=== PATIENT | female | born 1970 | race Caucasian/White ===

== ENCOUNTER 2019-01-02 00:35 | Outpatient (CLI) | payer OTHER, SELFPAY ==
--- NOTE | 2019-01-02 10:21 | DI.MAMMO_ITS ---
SYMPTOM/DIAGNOSIS: SCREENING, Z12.31 MAMMOGRAMS; Mammograms were interpreted according to the usual protocol including computer analysis with CAD system, tomosynthesis and C view imaging. Comparison is made with prior examinations. Breast density, Category C. No suspicious masses or microcalcifications are seen. There is no definite evidence of malignancy. IMPRESSION: Negative mammogram. Routine screening is recommended. Category 1. MQSA ASSESSMENT OF FINDINGS: Negative. Category 1. Patient will receive a letter notifying them of these results. Bi-RADS category C. The breasts are heterogeneously dense, which may obscure small masses.
== END 2019-01-02 00:55 ==
PROVIDERS: PCP Family Medicine; Visit Provider Family Medicine
DX: Z12.31 Encounter for screening mammogram for malignant neoplasm of breast (principal)
CPT/HCPCS: 77063; 77067

== ENCOUNTER 2021-07-02 18:17 | Outpatient (REF) | payer OTHER, SELFPAY ==
--- NOTE | 2021-07-02 16:30 | PAPFT_PTH ---
PATIENT: Asya Pandya LOC: [facility] #:[id number] AGE/SX: 50/F ROOM: RE07/02/[address]: Nataliya Scott MD : 1970 BED: DIS: 07/02/2021 SPEC #: [id number] RECD: 07/02/21 18:34 STATUS: CHARIS REQ #: [id number] NISHA: 07/02/21 16:[address]: Nataliya Scott [facility] Cytology RECD BY: Yaneli Miranda Tissues: 1 - CX/ENDOCX FOR PAP SMEARS Procedures: PAP THIN PREP/UVM Screening HPV DNA PROBE Comments: [id number]
[2021-07-04 11:14] LABS: COVID-19 RT-PCR UVMMC Result Negative (Negative)
== END 2021-07-02 18:18 | disposition home or self-care (01) ==
LOC: LBN 18:17
PROVIDERS: PCP Family Medicine; Visit Provider Family Medicine
DX: Z12.4 Encounter for screening for malignant neoplasm of cervix (principal); Z20.822 Contact with and (suspected) exposure to COVID-19; Z11.51 Encounter for screening for human papillomavirus (HPV); Z01.419 Encounter for gynecological examination (general) (routine) without abnormal findings
CPT/HCPCS: 88142; U0003; 87624

== ENCOUNTER 2021-07-16 00:31 | Outpatient (CLI) | payer OTHER, SELFPAY ==
[2021-07-16 11:05] LABS: ALT 26 U/L (14-59); AST 16 U/L (15-37); Albumin 3.9 g/dL (3.4-5.0); Alkaline Phosphatase 37 U/L (46-116); Anion Gap 6.4 mmol/L (3-11); BUN 20 mg/dL (7-18); Bilirubin, Total 0.6 mg/dL (0.2-1.0); CO2 30.6 mmol/L (21.0-32.0); CREATININE 0.9 mg/dL (0.55-1.02); Calcium 8.5 mg/dL (8.5-10.1); Calculated LDL 110 mg/dL (<100); Chloride 104 mmol/L (98-107); Cholesterol 172 mg/dL (<200); Ferritin 193 ng/mL (8-252); Glucose 100 mg/dL (74-106); HDL Cholesterol 48 mg/dL (40-60); Sodium 141 mmol/L (136-145); TSH 2.61 uIU/mL (0.36-3.74); Total Protein 6.7 g/dL (6.4-8.2); Triglyceride 74 mg/dL (<150)
== END 2021-07-16 00:32 | disposition home or self-care (01) ==
PROVIDERS: PCP Family Medicine; Visit Provider Family Medicine
DX: L65.9 Nonscarring hair loss, unspecified (principal); K21.9 Gastro-esophageal reflux disease without esophagitis; N95.1 Menopausal and female climacteric states; Z13.220 Encounter for screening for lipoid disorders
CPT/HCPCS: 36415; 80053; 80061; 82728; 83001; 84443

== ENCOUNTER 2021-09-22 00:54 | Outpatient (CLI) | payer OTHER, SELFPAY ==
--- NOTE | 2021-09-22 07:00 | DI.MAMMO_ITS ---
Exam(s) MAMMO SCREENING EXAM: MAMMO SCREENING CLINICAL HISTORY: screening,Z12.39. TECHNIQUE: Bilateral full field digital CC and MLO mammographic images were obtained with 3D tomosyn thesis and utilizing computer aided detection (CAD). COMPARISON: Prior mammograms dating back to 2016, the most recent being December 2018. FINDINGS: There has been no significant change in the appearance and distribution of the fibroglandular tissue which is again noted be moderately dense, this decreasing the sensitivity of the mammogram for findin g hidden underlying lesions. There are no new significant radiograph findings in right breast. In the left breast there is a microcalcification group evident on the CC view located 4 cm in from th e nipple. Spot Mag 2D view recommended. No new obvious masses. No new architectural distortion or skin thickening-traction. IMPRESSION: Moderately dense fibroglandular tissue. No radiographic evidence of malignancy in the right breast. Left breast microcalcification group which require spot compression 2D cc view BI-RADS Category 0 - Assessment Incomplete: Need additional imaging evaluation Breast Density - Category C - Heterogeneously dense Breast density Category C or D implies that the patient has dense breast tissue. Dense breast tissue can make it harder to find cancer on a mammogram. Dense breast tissue is also associated with an incr eased risk of breast cancer. This information about the result of the mammogram report was provided to the patient to raise their awareness. Use this report when you speak with the patient about their risks for breast cancer, which includes their family history. At that time, you may recommend additional screening tests (Ultrasoun d or MRI) as these tests may add significant information. A negative radiographic report should not delay biopsy if a dominant or clinically suspicious mass is present. Up to ten percent of cancers are not identified on mammography. A negative report may reinforce clinical impression. Adenosis and dense breasts may obscure an underlying neoplasm. False positive reports average 6 to 10%. Patient will receive a letter notifying them of these results.
== END 2021-09-22 01:14 ==
PROVIDERS: PCP Family Medicine; Visit Provider Family Medicine
DX: Z12.31 Encounter for screening mammogram for malignant neoplasm of breast (principal); R92.8 Other abnormal and inconclusive findings on diagnostic imaging of breast
CPT/HCPCS: 77063; 77067

== ENCOUNTER 2021-10-03 00:24 | Outpatient (CLI) | payer OTHER, SELFPAY ==
--- NOTE | 2021-10-03 10:00 | DI.MAMMO_ITS ---
Exam(s) MAMMO SCREEN CALL BACK UNI EXAM: MAMMO SCREEN CALL BACK UNI CLINICAL HISTORY: MICROCALCIFICATIONS LT BREAST. TECHNIQUE: Craniocaudal and mediolateral oblique Full Field Digital Mammography views of the left br east with Computer Aided Diagnosis. COMPARISON: No exams were available for comparison FINDINGS: Mammography/Tomosynthesis: Masses/Architectural Distortion: None seen. Microcalcifictions: No suspicious pleomorphic-type are seen. There are less than 5 punctate calcifica tions seen in the central left breast. No pleomorphism is noted. Skin Thickening/Nipple Retraction: None. IMPRESSION: 1. No evidence of malignancy is noted. 2. A six-month follow-up left mammogram is recommended for re-evaluation. 3. The findings were discussed with the patient on the date of the examination. BI-RADS Category 3 - 6 month - Probably Benign Finding: Recommend follow-up imaging in 6 months Breast Density - Category C - Heterogeneously dense Breast density Category C or D implies that the patient has dense breast tissue. Dense breast tissue can make it harder to find cancer on a mammogram. Dense breast tissue is also associated with an incr eased risk of breast cancer. This information about the result of the mammogram report was provided to the patient to raise their awareness. Use this report when you speak with the patient about their risks for breast cancer, which includes their family history. At that time, you may recommend additional screening tests (Ultrasoun d or MRI) as these tests may add significant information. A negative radiographic report should not delay biopsy if a dominant or clinically suspicious mass is present. Up to ten percent of cancers are not identified on mammography. A negative report may reinforce clinical impression. Adenosis and dense breasts may obscure an underlying neoplasm. False positive reports average 6 to 10%. Patient will receive a letter notifying them of these results.
== END 2021-10-03 00:44 ==
PROVIDERS: PCP Family Medicine; Visit Provider Family Medicine
DX: Z12.31 Encounter for screening mammogram for malignant neoplasm of breast (principal); R92.8 Other abnormal and inconclusive findings on diagnostic imaging of breast
CPT/HCPCS: 77063; 77067

== ENCOUNTER 2021-10-15 02:25 | Outpatient (CLI) | payer OTHER, SELFPAY ==
[2021-10-16 02:33] LABS: COVID-19 RT-PCR UVMMC Result Negative (Negative)
== END 2021-10-15 02:26 | disposition home or self-care (01) ==
PROVIDERS: PCP Family Medicine; Visit Provider Nurse Practitioner Family
DX: Z20.822 Contact with and (suspected) exposure to COVID-19 (principal)
CPT/HCPCS: U0003

== ENCOUNTER 2021-10-22 12:41 | Outpatient (CLI) | payer OTHER, SELFPAY ==
[2021-10-23 15:58] LABS: COVID-19 RT-PCR UVMMC Result Negative (Negative)
== END 2021-10-22 12:42 | disposition home or self-care (01) ==
PROVIDERS: PCP Family Medicine; Visit Provider Nurse Practitioner Family
DX: Z20.822 Contact with and (suspected) exposure to COVID-19 (principal)
CPT/HCPCS: U0003

== ENCOUNTER 2021-11-10 00:49 | Outpatient (CLI) | payer OTHER, SELFPAY ==
--- NOTE | 2021-11-10 10:48 | DI.US_ITS ---
APPROVED REPORT EXAM: Comprehensive 2D, Doppler, and color-flow Echocardiogram Patient Location: Out-Patient Commercial Title Examiner: Karly Cuello RDCS (AE) Indications: Systolic murmur Other Information Study Quality: Good Conclusion Normal left ventricular wall thickness and chamber size. Estimated ejection fraction is 65%. Wall m otion is normal Normal right ventricular size and systolic function Both atria are normal in size There is no structural or hemodynamically significant valvular disease Normal estimated right ventricular systolic pressure, 22 mmHg Wall motion Left Ventricle The left ventricle is normal size. The left ventricular systolic function is normal. The left ventric ular ejection fraction is within the normal range. There is normal left ventricular wall thickness. T here is normal LV segmental wall motion. There is no ventricular septal defect visualized. LVEF is 65 %. Right Ventricle The right ventricle is normal size. The right ventricular systolic function is normal. The RVSP is 21 .9mmHg. Atria The left atrium size is normal. The right atrium size is normal. The interatrial septum is intact wit h no evidence for an atrial septal defect. Aortic Valve The aortic valve is normal in structure. Aortic valve is trileaflet. There is no aortic valvular sten osis. No aortic regurgitation is present. Mitral Valve The mitral valve is normal in structure. No evidence of mitral valve stenosis. Trace mitral regurgita tion. Tricuspid Valve The tricuspid valve is normal in structure. There is no tricuspid valve stenosis. Trace tricuspid reg urgitation. Pulmonic Valve The pulmonary valve is normal in structure. There is no pulmonic valvular stenosis. There is no pulmo marcelina valvular regurgitation. Great Vessels The aortic root is normal in size. The aortic root is not well visualized but is probably normal size . There is aortic root dilation. The ascending aorta is normal in size. Aortic arch is normal i n caliber. IVC is normal in size and collapses >50% with inspiration. Pericardium There is no pericardial effusion. 2D Dimensions IVSD d PLAX 0.84 cm F: 0.6-1.0 LV Vol A2C d MOD 88.4 mL LVPW d PLAX 0.83 cm F: 0.6 - 1.0 LV Vol A4C d MOD 89.2 mL LVID d PLAX 4.12 cm F: 3.8 - 5.2 LA vol/ BSA A2C s A-L 16.3 mL/m2 LVDs 2.50 cm F: 2.2 - 3.5 LA vol/ BSA A4C s A-L 19.4 mL/m2 Ao Root d 2.64 cm F: 2.7 - 3.3 LA Vol/ BSA Biplane s A-L 18.4 mL/m2 RA Area A4C 11.90 cm2 LA Area A4C s MOD 13.23 cm2 RA Vol/ BSA A4C s A-L 17.3 mL/m2 LA Area A2C s MOD 11.70 cm2 Ao Asc Diam d 3.40 cm F: 2.3 - 3.1 LV EF A4C MOD 65.0 % LV EF Teichholz 69.5 % LV EF A2C MOD 65.1 % LVEF (Rodriguez's) 65.46 % F: 54 - 74 LV EF Biplane MOD 65.5 % LV Volume 71.80 mL F: 46 - 106 SV 58.80 mL LV Volume Index 42.99 mL/m2 F: 29 - 61 SV Index 35.20 mL/m2 LV Vol Biplane MOD 89.8 mL FS 38.65 % M-Mode TAPSE 1.96 cm (M/F) >1.7 LV Diastology MV E' medial 0.084 (>0.07 m/s) E/A Ratio 1.2 LV E/e MED 8.35 (<14) MV E Vmax 0.70 (0.4-1.3 m/s) MV E' lateral 0.115 (>0.1 m/s) MV A Vmax 0.60 (0.4-1.3 m/s) LV E/e LAT 6.10 (<14) MV E/A Ratio 1.14 MV E/E' medial 8.35 MV E/E' lateral 6.13 Aortic Valve LVOT Area 2.99 cm2 AoV Area Vmax 2.77 cm2 LVOT Vmax 1.38 m/s AoV Area/ BSA (Vmax) 1.66 cm2/m2 LVOT Mean Dominik. 0.89 m/s CECY Mean Dominik. 2.69 cm2 LVOT Peak Grad 7.6 mmHg CECY Mean Dominik. Index 1.61 cm2/m2 LVOT Mean Grad 3.8 mmHg LVOT VTI 0.266 m LVOT Diam s 1.95 cm AoV Vmax 1.49 m/s Velocity Ratio 0.92 AoV Mean Dominik. 0.99 m/s AoV Peak Grad 8.9 mmHg LVOT SV 79.70 mL AoV Mean Grad 4.5 mmHg AoV VTI 0.317 m AoV Area VTI 2.51 cm2 AoV Area/ BSA (VTI) 1.50 cm/m2 Mitral Valve MV DT 242 (160-240 msec) MV PHT 70 msec MV Area PHT 3.14 cm2 Pulmonary Valve PV Vmax 0.88 (0.5-1.5 m/s) RVOT Peak Gr. 1.69 mmHg PV Peak Grad 3.1 mmHg RVOT Mean Gr. 0.80 mmHg PV Mean Grad 1.6 mmHg RVOT VTI 0.142 m PV VTI 0.170 m RVOT Vmax 0.65 m/s Tricuspid Valve TR Peak Grad 18.9 mmHg TR Vmax 2.18 m/s RA Pressure 3.00 mmHg RVSP (TR) 21.9 mmHg
== END 2021-11-10 01:09 ==
PROVIDERS: PCP Family Medicine; Visit Provider Family Medicine
DX: R01.1 Cardiac murmur, unspecified (principal)
CPT/HCPCS: 93306

== ENCOUNTER 2021-12-03 11:36 | Outpatient (REF) | payer OTHER, SELFPAY ==
[2021-12-04 02:27] LABS: COVID-19 RT-PCR UVMMC Result Negative (Negative)
== END 2021-12-03 11:37 | disposition home or self-care (01) ==
LOC: LBO 11:36
PROVIDERS: PCP Family Medicine; Visit Provider Nurse Practitioner Family
DX: Z20.822 Contact with and (suspected) exposure to COVID-19 (principal)
CPT/HCPCS: U0003

== ENCOUNTER 2021-12-24 17:52 | Outpatient (REF) | payer OTHER, SELFPAY ==
[2021-12-26 12:41] LABS: COVID-19 RT-PCR UVMMC Result Negative (Negative)
== END 2021-12-24 17:53 | disposition home or self-care (01) ==
LOC: LBN 17:52
PROVIDERS: PCP Family Medicine; Visit Provider Nurse Practitioner Family
DX: Z20.822 Contact with and (suspected) exposure to COVID-19 (principal)
CPT/HCPCS: U0003

== ENCOUNTER → 2022-04-06 02:07 | Outpatient (CLI) | payer OTHER, SELFPAY ==
--- NOTE | 2022-04-06 07:15 | DI.MAMMO_ITS ---
Exam(s) MAMMO DIAGNOSTIC UNI EXAM: MAMMO DIAGNOSTIC UNI CLINICAL HISTORY: 3-6 mo f/u abnormal mammo,R92.8.Z09. COMPARISON: No exams were available for comparison [id number] TECHNIQUE: Craniocaudal and mediolateral oblique Full Field Digital Mammography views of the left br east with Computer Aided Diagnosis followed by Tomosynthesis FINDINGS: Mammography/Tomosynthesis: Masses/Architectural Distortion: None seen. Microcalcifications: No suspicious pleomorphic-type are seen. There are few stable benign, punctate a ppearing calcifications in the central left breast. Skin Thickening/Nipple Retraction: None. IMPRESSION: 1. No evidence of malignancy is noted. 2. Unless there is more urgent need, follow-up screening mammography is recommended, as per [employer] [place] guidelines. BI-RADS Category 2 - Benign Findings Breast Density - Category C - Heterogeneously dense Breast density category C or D implies that the patient has dense breast tissue. Dense breast tissue is very common and is not abnormal but dense breast tissue can make it harder to find cancer on a ma mmogram. Also, dense breast tissue may increase their breast cancer risk. This information about the result of the mammogram report was provided to the patient to raise their awareness. Use this report when you speak with the patient about their risks for breast cancer, which includes their family hist ory. At that time, you may recommend for more screening tests (Ultrasound or MRI) as they might be us eful based on their risk. A negative radiographic report should not delay biopsy if a dominant or clinically suspicious mass is present. Up to ten percent of cancers are not identified on mammography. A negative report may reinforce clinical impression. Adenosis and dense breasts may obscure an underlying neoplasm. False positive reports average 6 to 10%. Patient will receive a letter notifying them of these results.
== END ==
PROVIDERS: Visit Provider Family Medicine
DX: R92.8 Other abnormal and inconclusive findings on diagnostic imaging of breast (principal); N64.59 Other signs and symptoms in breast
CPT/HCPCS: 77061; 77065; G0279

== ENCOUNTER 2022-11-11 01:47 | Outpatient (CLI) | payer OTHER, SELFPAY ==
--- NOTE | 2022-11-11 07:45 | DI.MAMMO_ITS ---
Exam(s) MAMMO SCREENING EXAM: MAMMO SCREENING CLINICAL HISTORY: screening,z12.39. TECHNIQUE: Bilateral full field digital CC and MLO mammographic images were obtained with 3D tomosyn thesis and utilizing computer aided detection (CAD). COMPARISON: Prior mammograms were reviewed. FINDINGS: The fibroglandular tissue is again noted be moderately dense. There are no obvious new spiculated masses nor malignant appearing microcalcification groups. Benign -appearing microcalcification group in the left breast is again noted. There is no significant architectural distortion nor skin thickening-retraction. IMPRESSION: Stable benign findings. No radiographic evidence of malignancy. BI-RADS Category 2 - Benign Findings Breast Density - Category C - Heterogeneously dense Breast density Category C or D implies that the patient has dense breast tissue. Dense breast tissue can make it harder to find cancer on a mammogram. Dense breast tissue is also associated with an incr eased risk of breast cancer. This information about the result of the mammogram report was provided to the patient to raise their awareness. Use this report when you speak with the patient about their risks for breast cancer, which includes their family history. At that time, you may recommend additional screening tests (Ultrasoun d or MRI) as these tests may add significant information. A negative radiographic report should not delay biopsy if a dominant or clinically suspicious mass is present. Up to ten percent of cancers are not identified on mammography. A negative report may reinforce clinical impression. Adenosis and dense breasts may obscure an underlying neoplasm. False positive reports average 6 to 10%. Patient will receive a letter notifying them of these results.
== END 2022-11-11 02:07 ==
PROVIDERS: PCP Nurse Practitioner Family; Visit Provider Nurse Practitioner Family
DX: Z12.31 Encounter for screening mammogram for malignant neoplasm of breast (principal); R92.8 Other abnormal and inconclusive findings on diagnostic imaging of breast
CPT/HCPCS: 77063; 77067

== ENCOUNTER → 2023-11-19 00:27 | Outpatient (CLI) | payer OTHER, SELFPAY ==
--- NOTE | 2023-11-19 12:08 | DI.MAMMO_ITS ---
Exam(s) MAMMO SCREENING EXAM: MAMMO SCREENING CLINICAL HISTORY: screening,Z12.39 TECHNIQUE: Mammograms were interpreted according to the usual protocol including computer analysis w [employer] CAD system, tomosynthesis and C-view imaging. COMPARISON: 2026 through 2022 FINDINGS: The breasts are composed of heterogeneously dense fibroglandular densities, Breast Density category C . No suspicious masses or suspicious microcalcifications are seen. No skin thickening or abnormal axillary lymph nodes are seen. There has been no significant change from prior exams. IMPRESSION: BI-RADS Category 1, Negative mammogram. Yearly screening mammography is recommended. Breast Density Category C, heterogeneously Dense. The mammogram demonstrates the patient's breast tissue is dense. Dense breast tissue is very common a nd is not abnormal but dense breast tissue can make it harder to find cancer on a mammogram. Also, de nse breast tissue may increase breast cancer risk. This information about the result of the mammogram report was provided to the patient to raise their awareness. Use this report when you speak with the patient about their risks for breast cancer, which includes their family history. At that time, you may recommend additional screening tests (Ultrasound or MRI) as they might be useful based on their r isk. A negative radiographic report should not delay biopsy if a dominant or clinically suspicious mass is present. Up to ten percent of cancers are not identified on mammography. A negative report may reinforce clinical impression. Adenosis and dense breasts may obscure an underlying neoplasm. False positive reports average 6 to 10%.
== END ==
PROVIDERS: PCP Nurse Practitioner Family; Visit Provider Nurse Practitioner Family
DX: Z12.31 Encounter for screening mammogram for malignant neoplasm of breast (principal)
CPT/HCPCS: 77063; 77067

== ENCOUNTER 2024-01-07 11:24 | Outpatient (REF) | payer OTHER, SELFPAY ==
--- NOTE | 2024-01-07 10:45 | PAPFT_PTH ---
PATIENT: Asya Pandya LOC: [facility] #:[id number] AGE/SX: 53/F ROOM: RE01/07/[address]: Fernando Hickman DNP : 1970 BED: DIS: 01/07/2024 SPEC #: [id number] RECD: 01/07/24 12:45 STATUS: CHARIS REElkin #: [id number] NISHA: 01/07/24 10:[address]: Fernando Baker DEPT: [facility] Cytology RECD BY: Yaneli Miranda Tissues: 1 - CX/ENDOCX FOR PAP SMEARS Procedures: PAP THIN PREP/UVM Screening Comments: [id number]
== END 2024-01-07 11:25 | disposition home or self-care (01) ==
LOC: LBN 11:24
PROVIDERS: PCP Nurse Practitioner Family; Referring Provider Nurse Practitioner Family; Visit Provider Nurse Practitioner Family
DX: Z12.4 Encounter for screening for malignant neoplasm of cervix (principal)
CPT/HCPCS: 88142

== ENCOUNTER 2024-03-24 00:57 | Outpatient (CLI) | payer OTHER, SELFPAY ==
[2024-03-24 18:30] LABS: Sex Hormone Binding Globulin 47.3 nmol/L (See Note)
[2024-04-01 18:11] LABS: Testosterone, Free 0.25 ng/dL (<0.13-0.90); Testosterone, Total 13 ng/dL (8-60)
== END 2024-03-24 00:58 | disposition home or self-care (01) ==
PROVIDERS: PCP Nurse Practitioner Family; Visit Provider Nurse Practitioner Women's Health
DX: F52.22 Female sexual arousal disorder (principal)
CPT/HCPCS: 36415; 84402; 84403; 84270

== ENCOUNTER 2025-02-09 00:03 | Outpatient (CLI) | payer OTHER, SELFPAY ==
--- NOTE | 2025-02-09 12:20 | DI.MAMMO_ITS ---
Exam(s) MAMMO SCREENING EXAM: MAMMO SCREENING CLINICAL HISTORY: screening,Z12.39. TECHNIQUE: Bilateral full field digital CC and MLO mammographic images were obtained with 3D tomosyn thesis and utilizing computer aided detection (CAD). COMPARISON: Prior mammograms dating back to 2017 were reviewed. FINDINGS: There has been no significant change in the appearance and distribution of the fibroglandular tissue. There are no CAD designations. There are no new spiculated masses nor malignant appearing microcalcification groups. Asymmetric density medially in the right breast is unchanged 2017. There is no significant architectural distortion nor skin thickening-retraction. IMPRESSION: No radiographic evidence of malignancy. BI-RADS Category 1 - Negative Breast Density - Category B - Scattered areas of fibroglandular density Breast density Category C or D implies that the patient has dense breast tissue. Dense breast tissue can make it harder to find cancer on a mammogram. Dense breast tissue is also associated with an incr eased risk of breast cancer. This information about the result of the mammogram report was provided to the patient to raise their awareness. Use this report when you speak with the patient about their risks for breast cancer, which includes their family history. At that time, you may recommend additional screening tests (Ultrasoun d or MRI) as these tests may add significant information. A negative radiographic report should not delay biopsy if a dominant or clinically suspicious mass is present. Up to ten percent of cancers are not identified on mammography. A negative report may reinforce clinical impression. Adenosis and dense breasts may obscure an underlying neoplasm. False positive reports average 6 to 10%. Patient will receive a letter notifying them of these results.
== END 2025-02-09 00:23 ==
LOC: DI 00:03
PROVIDERS: PCP Nurse Practitioner Family; Visit Provider Nurse Practitioner Family
DX: Z12.31 Encounter for screening mammogram for malignant neoplasm of breast (principal); R92.323 Mammographic fibroglandular density, bilateral breasts
CPT/HCPCS: 77063; 77067